=== PATIENT | female | born 1955 | race Two or more races ===

== ENCOUNTER → 2022-01-08 08:00 | Outpatient (CLI) | payer OTHER ==
[~2022-01-08] VITALS: Ht 160 cm; Wt 56.2 kg
[~2022-01-08 08:00] MED LIST: CLONAZEPAM0.5 MG PO; DEPAKOTE ER500 MG PO
== END | disposition home or self-care (01) ==
LOC: LAB 08:00 → SURH 01-13 08:45 → EDSTATUS 01-13 08:45 → SURH 01-13 10:30
PROVIDERS: ATTEND Orthopaedic Surgery
DX: D68.9 Coagulation defect, unspecified (principal); E78.2 Mixed hyperlipidemia; N39.0 Urinary tract infection, site not specified; R07.9 Chest pain, unspecified; I10 Essential (primary) hypertension; Z20.822 Contact with and (suspected) exposure to COVID-19

== ENCOUNTER → 2022-02-25 08:00 | Outpatient (CLI) | payer OTHER ==
[~2022-02-25] VITALS: Ht 160 cm; Wt 55.8 kg
[~2022-02-25 08:00] MED LIST changes: +MULTI-VITAMIN1 EACH PO
== END | disposition home or self-care (01) ==
LOC: LAB 08:00 → EDSTATUS 03-03 07:30 → SURH 03-03 07:30
PROVIDERS: ATTEND Orthopaedic Surgery
DX: D68.9 Coagulation defect, unspecified (principal); N39.0 Urinary tract infection, site not specified; Z03.818 Encounter for observation for suspected exposure to other biological agents ruled out; E78.2 Mixed hyperlipidemia; R07.9 Chest pain, unspecified; I10 Essential (primary) hypertension